=== PATIENT | female | born 1995 | race Caucasian/White ===

== ENCOUNTER 2017-03-03 17:22 | Emergency (ER) | payer OTHER ==
[~2017-03-03] VITALS: Wt 46.9 kg
[~2017-03-03 17:22] MED LIST: ADDERALL XR5 MG PO; ADDERALL7.5 MG PO; ATARAX25 MG PO; AVPAK AZITHROM250 M1 PO; BACTRIM DS 8001 TA1 PO; BROMFED DM COU118 M1 PO; Bactrim 200 MG/30 ML PO; CLARITIN5 MG/5 ML PO; CLEOCIN150 MG PO; DOXEPIN10 MG PO; FLEXERIL5 MG PO; HYDROCODONE BIT1 T11 PO; IBUPROFEN600 MG PO; LAMICTAL25 MG PO; MACROBID100 M1 PO; MEDROL DOSEPAK4 MG PO; MOTRIN400 MG PO; MOTRIN600 MG PO; MOTRIN800 MG PO; PERIDEX 480 ML480 ML PO; PRENATAL GUMMI1 EACH PO; PRENATAL1 TA1 PO; PRENATAL1 TA7 PO; Peridex 473 ML473 ML PO; ROBITUSSIN DM 105 ML PO; SEPTRA 200 MG/100 ML PO; TYLENOL325 M1 PO; VALIUM10 MG PO; ZITHROMAX Z PA250 MG PO; ZITHROMAX250 MG PO; ZOFRAN4 MG PO; ZYRTEC10 MG PO
[2017-03-03] MEDS ORDERED: DOXYCYCLINE100 MG PO (18:45)
[2017-03-03] MEDS ORDERED: CLARITIN-D 12 H1 TAB PO (18:45)
[2017-03-03] MEDS ORDERED: FLONASE ALLERG9.9 ML NAS (18:45)
== END 2017-03-03 18:53 | disposition home or self-care (01) ==
LOC: ED 17:22
DX: J01.90 Acute sinusitis, unspecified (principal); F17.200 Nicotine dependence, unspecified, uncomplicated; Z88.0 Allergy status to penicillin

== ENCOUNTER 2017-05-12 23:19 | Emergency (ER) | payer OTHER ==
[~2017-05-12] VITALS: Ht 139.7 cm; Wt 47.6 kg
[~2017-05-12 23:19] MED LIST changes: +CLARITIN-D 12 H1 TAB PO; +DOXYCYCLINE100 MG PO; +FLONASE ALLERG9.9 ML NAS
[2017-05-13] MEDS ORDERED: Motrin,Rufen800 MG PO (00:22)
== END 2017-05-13 00:48 | disposition home or self-care (01) ==
LOC: ED 23:19
DX: S96.912A Strain of unspecified muscle and tendon at ankle and foot level, left foot, initial encounter (principal); F17.200 Nicotine dependence, unspecified, uncomplicated; Z88.0 Allergy status to penicillin; W01.0XXA Fall on same level from slipping, tripping and stumbling without subsequent striking against object, initial encounter; Y93.01 Activity, walking, marching and hiking; Y92.89 Other specified places as the place of occurrence of the external cause; Y99.8 Other external cause status

== ENCOUNTER 2017-08-20 16:52 | Emergency (ER) | payer OTHER ==
[~2017-08-20] VITALS: Ht 152.4 cm; Wt 45.4 kg
[~2017-08-20 16:52] MED LIST changes: +Motrin,Rufen800 MG PO
[2017-08-20] MEDS ORDERED: CLARITIN10 MG PO (17:29)
[2017-08-20] MEDS ORDERED: PREDNISONE10 MG PO (17:29)
[2017-08-20] MEDS ORDERED: FLONASE ALLERG9.9 ML NAS (17:29)
[2017-08-20] MEDS ORDERED: ROBITUSSIN DM 105 ML PO (17:29)
== END 2017-08-20 18:38 | disposition home or self-care (01) ==
LOC: ED 16:52
DX: B34.9 Viral infection, unspecified (principal); F17.200 Nicotine dependence, unspecified, uncomplicated; Z88.0 Allergy status to penicillin

== ENCOUNTER 2017-11-01 17:07 | Emergency (ER) | payer OTHER ==
[~2017-11-01] VITALS: Ht 139.7 cm; Wt 48.1 kg
[~2017-11-01 17:07] MED LIST changes: +CLARITIN10 MG PO; +PREDNISONE10 MG PO
[2017-11-01] MEDS ORDERED: IBU800 M1 PO (18:17)
[2017-11-01] MEDS ORDERED: CLINDAMYCIN HC300 MG PO (18:17)
== END 2017-11-01 18:32 | disposition home or self-care (01) ==
LOC: ED 17:07
DX: K08.89 Other specified disorders of teeth and supporting structures (principal); F17.200 Nicotine dependence, unspecified, uncomplicated; Z79.899 Other long term (current) drug therapy; Z88.0 Allergy status to penicillin

== ENCOUNTER 2018-03-01 18:27 | Emergency (ER) | payer OTHER ==
[~2018-03-01] VITALS: Ht 139.7 cm; Wt 42.2 kg
[~2018-03-01 18:27] MED LIST changes: +CLINDAMYCIN HC300 MG PO; +IBU800 M1 PO
[2018-03-01] MEDS ORDERED: PREDNISONE10 MG PO (18:31)
== END 2018-03-01 18:50 | disposition home or self-care (01) ==
LOC: ED 18:27
DX: M77.9 Enthesopathy, unspecified (principal); F17.200 Nicotine dependence, unspecified, uncomplicated; Z88.0 Allergy status to penicillin; X58.XXXA Exposure to other specified factors, initial encounter; Y93.89 Activity, other specified; Y92.89 Other specified places as the place of occurrence of the external cause; Y99.8 Other external cause status

== ENCOUNTER 2018-03-11 17:33 | Emergency (ER) | payer OTHER ==
[~2018-03-11] VITALS: Ht 139.7 cm; Wt 42.2 kg
== END 2018-03-11 18:22 | disposition home or self-care (01) ==
LOC: ED 17:33
DX: M77.9 Enthesopathy, unspecified (principal); F17.200 Nicotine dependence, unspecified, uncomplicated; G89.29 Other chronic pain; Z88.0 Allergy status to penicillin

== ENCOUNTER → 2018-07-29 | Outpatient (CLI) | payer OTHER ==
[~2018-07-29] MED LIST changes: +BUSPIRONE HCL7.5 MG PO; +LATU40TA PO; +OMNICEF300 MG PO; +PREDNISONE20 M1 PO; +PROAIR HFA8.5 GM INH; +TRAZODONE50 MG PO; +VISTARIL25 MG PO
[2018-07-29 10:29] LABS: HEMATOCRIT 39.1 % (37.0-47.0); HEMOGLOBIN 13.2 g/dl (12.0-16.0); MEAN CELL VOLUME 89.1 fl (81.0-99.0); MEAN CORPUSCULAR HGB 30.1 pg (27.0-31.0); MEAN CORPUSCULAR HGB CONC 33.8 g/dl (33.0-37.0); MEAN PLATELET VOLUME 8.8 fl (9.6-12.3); RED BLOOD COUNT 4.39 10*6/uL (4.10-5.10); RED CELL DISTRI WIDTH 12.6 % (0-14.5); WHITE BLOOD COUNT 11.7 10*3/uL (4.8-10.8)
[2018-07-29 10:52] LABS: ALBUMIN 3.9 gm/dl (3.1-4.5); ALKALINE PHOSPHATASE 84 U/L (45-117); BUN 13 mg/dl (7-24); CHLORIDE 104 mmol/L (98-107); CREATININE 0.81 mg/dL (0.55-1.02); SGOT/AST 15 IU/L (3-35); SGPT/ALT 18 U/L (12-78); SODIUM 139 mmol/L (136-145); TOTAL PROTEIN 7.7 gm/dL (6.4-8.2)
== END | disposition home or self-care (01) ==
LOC: LAB 09:59
PROVIDERS: Registered Nurse Flight
DX: Z00.00 Encounter for general adult medical examination without abnormal findings (principal)

== ENCOUNTER 2019-05-28 11:26 | Emergency (ER) | payer OTHER ==
[~2019-05-28] VITALS: Ht 139.7 cm; Wt 38.1 kg
== END 2019-05-28 12:20 | disposition home or self-care (01) ==
LOC: ED 11:26
DX: Z32.02 Encounter for pregnancy test, result negative (principal); Z88.0 Allergy status to penicillin; Z79.899 Other long term (current) drug therapy

== ENCOUNTER 2019-09-15 18:15 | Emergency (ER) | payer OTHER ==
[~2019-09-15] VITALS: Ht 139.7 cm; Wt 44.0 kg
[2019-09-15 18:57] LABS: BASO # 0.1 10*3/uL (0.0-0.1); BASO % 0.4 % (0.0-1.0); EOS # 0.3 10*3/uL (0.0-0.4); HEMATOCRIT 42.3 % (37.0-47.0); HEMOGLOBIN 14.7 g/dl (12.0-16.0); LYMPH # 4.6 10*3/uL (1.3-4.4); LYMPH % 29.2 % (27.0-41.0); MEAN CELL VOLUME 88.7 fl (81.0-99.0); MEAN CORPUSCULAR HGB 30.8 pg (27.0-31.0); MEAN CORPUSCULAR HGB CONC 34.8 g/dl (33.0-37.0); MEAN PLATELET VOLUME 8.2 fl (9.6-12.3); NEUT # 9.8 10*3/uL (2.3-7.9); PLATELET COUNT AUTOMATED 531 10*3/uL (130-400); RED BLOOD COUNT 4.77 10*6/uL (4.10-5.10); WHITE BLOOD COUNT 15.8 10*3/uL (4.8-10.8)
[2019-09-15 19:15] LABS: ALBUMIN 4.1 gm/dl (3.1-4.5); ALKALINE PHOSPHATASE 102 U/L (45-117); BUN 8 mg/dl (7-24); CHLORIDE 106 mmol/L (98-107); CREATININE 0.75 mg/dL (0.55-1.02); POTASSIUM 3.7 mmol/L (3.5-5.1); SGOT/AST 16 IU/L (3-35); SGPT/ALT 23 U/L (12-78); SODIUM 138 mmol/L (136-145); TOTAL PROTEIN 8.8 gm/dL (6.4-8.2)
[2019-09-15 19:28] LABS: BILIRUBIN NEGATIVE (NEGATIVE); BLOOD NEGATIVE (NEGATIVE); CLARITY CLOUDY (CLEAR); COLOR YELLOW (YELLOW); GLUCOSE NEGATIVE (NEGATIVE); KETONE NEGATIVE (NEGATIVE); LEUKO ESTERASE NEGATIVE (NEGATIVE); NITRITE NEGATIVE (NEGATIVE); SPECIFIC GRAVITY 1.015 (1.005-1.030); UROBILINOGEN 0.2 E.U./dl (0.2-1.0)
[2019-09-15 19:39] LABS: BACTERIA 2+; EPITHELIAL CELLS 20-30
[2019-09-15] MEDS ORDERED: SEPTDS PO (20:09)
== END 2019-09-15 20:22 | disposition home or self-care (01) ==
LOC: ED 18:15
PROVIDERS: Nurse Practitioner Family
DX: J32.9 Chronic sinusitis, unspecified (principal); Z88.0 Allergy status to penicillin; Z79.899 Other long term (current) drug therapy

== ENCOUNTER 2020-03-31 21:22 | Emergency (ER) | payer OTHER ==
[~2020-03-31] VITALS: Ht 139.7 cm; Wt 43.5 kg
[~2020-03-31 21:22] MED LIST changes: +SEPTDS PO
== END 2020-04-01 01:00 | disposition home or self-care (01) ==
LOC: ED 21:22
DX: S93.402A Sprain of unspecified ligament of left ankle, initial encounter (principal); X58.XXXA Exposure to other specified factors, initial encounter; Y93.89 Activity, other specified; Y92.89 Other specified places as the place of occurrence of the external cause; Y99.8 Other external cause status

== ENCOUNTER → 2021-01-01 | Outpatient (CLI) | payer OTHER | END | disposition home or self-care (01) | LOC: LAB 16:23 | PROVIDERS: ATTEND Nurse Practitioner Women's Health | DX: N91.2 Amenorrhea, unspecified (principal) ==

== ENCOUNTER 2021-04-21 19:23 | Emergency (ER) | payer OTHER ==
[~2021-04-21] VITALS: Ht 139.7 cm; Wt 43.5 kg
== END 2021-04-21 21:47 | disposition left against medical advice (07) ==
LOC: ED 19:23
DX: S60.812A Abrasion of left wrist, initial encounter (principal); S50.312A Abrasion of left elbow, initial encounter; M54.5 Low back pain; F17.200 Nicotine dependence, unspecified, uncomplicated; Z88.0 Allergy status to penicillin; Y04.2XXA Assault by strike against or bumped into by another person, initial encounter; Y93.89 Activity, other specified; Y92.89 Other specified places as the place of occurrence of the external cause; Y99.8 Other external cause status

== ENCOUNTER 2021-06-03 20:28 | Emergency (ER) | payer OTHER ==
[~2021-06-03] VITALS: Ht 152.4 cm; Wt 40.4 kg
[2021-07-03] MEDS ORDERED: MACROBID100 M1 PO (17:19)
[2021-07-03] MEDS ORDERED: FLAGYL500 MG PO (17:19)
== END 2021-06-03 21:13 | disposition home or self-care (01) ==
LOC: ED 20:28
DX: Z32.01 Encounter for pregnancy test, result positive (principal); Z88.0 Allergy status to penicillin

== ENCOUNTER 2021-06-30 14:15 | Emergency (ER) | payer OTHER ==
[~2021-06-30] VITALS: Ht 139.7 cm; Wt 41.3 kg
[2021-06-30 14:58] LABS: BASO # 0.1 10*3/uL (0.0-0.1); BASO % 0.6 % (0.0-1.0); EOS # 0.5 10*3/uL (0.0-0.4); EOS % 4.1 % (1.0-4.0); LYMPH # 3.6 10*3/uL (1.3-4.4); LYMPH % 32.3 % (27.0-41.0); MEAN CORPUSCULAR HGB 30.6 pg (27.0-31.0); MEAN PLATELET VOLUME 8.2 fl (9.6-12.3); MONO # 0.7 10*3/uL (0.1-1.0); MONO % 6.6 % (3.0-9.0); NEUT # 6.2 10*3/uL (2.3-7.9); NEUT % 56.2 % (47.0-73.0); PLATELET COUNT AUTOMATED 416 10*3/uL (130-400); RED BLOOD COUNT 3.89 10*6/uL (4.10-5.10); RED CELL DISTRI WIDTH 12.1 % (0-14.5); WHITE BLOOD COUNT 11.1 10*3/uL (4.8-10.8)
[2021-06-30 15:16] LABS: ALBUMIN 3.6 gm/dl (3.1-4.5); ALKALINE PHOSPHATASE 78 U/L (45-117); BUN 7 mg/dl (7-24); CHLORIDE 107 mmol/L (98-107); CREATININE 0.56 mg/dL (0.55-1.02); POTASSIUM 3.8 mmol/L (3.5-5.1); SGOT/AST 10 IU/L (3-35); SGPT/ALT 17 U/L (12-78); SODIUM 138 mmol/L (136-145); TOTAL PROTEIN 7.4 gm/dL (6.4-8.2)
[2021-06-30 15:38] LABS: BILIRUBIN Negative (Negative); BLOOD 3+ (Negative); CLARITY Cloudy (Clear); COLOR Yellow (Yellow); GLUCOSE Negative (Negative); KETONE Negative (Negative); LEUKO ESTERASE 1+ (Negative); NITRITE Negative (Negative); UROBILINOGEN 0.2 E.U./dl (0.0-1.0)
[2021-06-30 15:45] LABS: BACTERIA 1+; EPITHELIAL CELLS 16-20
[2021-06-30] MEDS ORDERED: FLAGYL500 MG PO (16:00)
[2021-06-30] MEDS ORDERED: MACROBID100 M1 PO (16:00)
[2021-07-03] MEDS ORDERED: MACROBID100 M1 PO (17:19)
[2021-07-03] MEDS ORDERED: FLAGYL500 MG PO (17:19)
== END 2021-06-30 18:32 | disposition home or self-care (01) ==
LOC: ED 14:15
PROVIDERS: Physician Assistant
DX: O23.591 Infection of other part of genital tract in pregnancy, first trimester (principal); A59.01 Trichomonal vulvovaginitis; Z3A.01 Less than 8 weeks gestation of pregnancy; Z88.0 Allergy status to penicillin

== ENCOUNTER 2021-07-02 20:32 | Emergency (ER) | payer OTHER ==
[~2021-07-02] VITALS: Ht 139.7 cm; Wt 44.0 kg
[~2021-07-02 20:32] MED LIST changes: +FLAGYL500 MG PO
[2021-07-03] MEDS ORDERED: FLAGYL500 MG PO (17:19)
[2021-07-03] MEDS ORDERED: MACROBID100 M1 PO (17:19)
== END 2021-07-02 23:52 | disposition home or self-care (01) ==
LOC: ED 20:32
DX: O20.0 Threatened abortion (principal); Z3A.00 Weeks of gestation of pregnancy not specified; Z88.0 Allergy status to penicillin

== ENCOUNTER → 2021-07-04 | Outpatient (CLI) | payer OTHER | END | disposition home or self-care (01) | LOC: LAB 16:24 | PROVIDERS: ATTEND Physician Assistant | DX: O20.0 Threatened abortion (principal) ==

== ENCOUNTER 2021-12-18 19:18 | Emergency (ER) | payer OTHER ==
[~2021-12-18] VITALS: Ht 139.7 cm; Wt 41.7 kg
[2021-12-18 21:24] LABS: HEMATOCRIT 33.7 % (37.0-47.0); MEAN CELL VOLUME 90.8 fl (81.0-99.0); MEAN CORPUSCULAR HGB 31.3 pg (27.0-31.0); MEAN CORPUSCULAR HGB CONC 34.4 g/dl (33.0-37.0); MEAN PLATELET VOLUME 8.4 fl (9.6-12.3); PLATELET COUNT AUTOMATED 384 10*3/uL (130-400); RED BLOOD COUNT 3.71 10*6/uL (4.10-5.10); RED CELL DISTRI WIDTH 12.4 % (0-14.5); WHITE BLOOD COUNT 18.2 10*3/uL (4.8-10.8)
[2021-12-18 21:33] LABS: MANUAL DIFF REFLEX YES
[2021-12-18 21:39] LABS: BILIRUBIN Negative (Negative); BLOOD Negative (Negative); CLARITY Turbid (Clear); COLOR Yellow (Yellow); GLUCOSE Negative (Negative); KETONE Trace (Negative); LEUKO ESTERASE Trace (Negative); NITRITE Negative (Negative); SPECIFIC GRAVITY 1.025 (1.001-1.030); UROBILINOGEN 0.2 E.U./dl (0.0-1.0)
[2021-12-18 21:41] LABS: ALKALINE PHOSPHATASE 58 U/L (45-117); BUN 10 mg/dl (7-24); CHLORIDE 109 mmol/L (98-107); CREATININE 0.41 mg/dL (0.55-1.02); LIPASE 156 U/L (73-393); POTASSIUM 3.7 mmol/L (3.5-5.1); SGOT/AST 8 IU/L (3-35); SGPT/ALT 13 U/L (12-78); SODIUM 137 mmol/L (136-145); TOTAL PROTEIN 6.8 gm/dL (6.4-8.2)
[2021-12-18 21:48] LABS: BACTERIA 4+
[2021-12-18 21:49] LABS: WBC TNTC wbc/hpf (0-5)
[2021-12-18 21:57] LABS: TOTAL CELLS COUNTED 100 #CELLS
[2021-12-18 21:58] LABS: PLATELET SUFFICIENCY NORMAL (NORMAL)
[2021-12-18] MEDS ORDERED: MACROBID100 M1 PO (22:55)
== END 2021-12-19 00:44 | disposition home or self-care (01) ==
LOC: ED 19:18
PROVIDERS: Physician Assistant
DX: O23.91 Unspecified genitourinary tract infection in pregnancy, first trimester (principal); Z3A.08 8 weeks gestation of pregnancy; Z88.0 Allergy status to penicillin

== ENCOUNTER 2022-03-07 20:24 | Emergency (ER) | payer OTHER ==
[2022-03-07] MEDS ORDERED: ASPIRIN81 M1 PO (20:39)
[2022-03-07 21:11] LABS: BASO # 0.1 10*3/uL (0.0-0.1); BASO % 0.4 % (0.0-1.0); EOS # 0.2 10*3/uL (0.0-0.4); EOS % 1.1 % (1.0-4.0); HEMATOCRIT 30.5 % (37.0-47.0); LYMPH # 3.7 10*3/uL (1.3-4.4); LYMPH % 19.2 % (27.0-41.0); MEAN CELL VOLUME 89.2 fl (81.0-99.0); MEAN CORPUSCULAR HGB 31.3 pg (27.0-31.0); MEAN CORPUSCULAR HGB CONC 35.1 g/dl (33.0-37.0); MEAN PLATELET VOLUME 8.6 fl (9.6-12.3); MONO # 1.1 10*3/uL (0.1-1.0); MONO % 5.7 % (3.0-9.0); NEUT # 14.1 10*3/uL (2.3-7.9); PLATELET COUNT AUTOMATED 441 10*3/uL (130-400); RED BLOOD COUNT 3.42 10*6/uL (4.10-5.10); RED CELL DISTRI WIDTH 12.7 % (0-14.5); WHITE BLOOD COUNT 19.2 10*3/uL (4.8-10.8)
[2022-03-07 21:39] LABS: ALKALINE PHOSPHATASE 80 U/L (45-117); BUN 10 mg/dl (7-24); CHLORIDE 107 mmol/L (98-107); CREATININE 0.45 mg/dL (0.55-1.02); POTASSIUM 3.4 mmol/L (3.5-5.1); SGOT/AST 12 IU/L (3-35); SGPT/ALT 11 U/L (12-78); SODIUM 137 mmol/L (136-145); TOTAL PROTEIN 7.5 gm/dL (6.4-8.2)
[2022-03-07 23:03] LABS: BILIRUBIN 1+ (Negative); BLOOD Negative (Negative); CLARITY Cloudy (Clear); COLOR Dark Yellow (Yellow); GLUCOSE Negative (Negative); KETONE 4+ (Negative); LEUKO ESTERASE 1+ (Negative); NITRITE Negative (Negative); PH 6.5 (4.5-8.0); SPECIFIC GRAVITY >= 1.030 (1.001-1.030)
[2022-03-08 00:04] LABS: BACTERIA 3+
== END 2022-03-08 00:13 | disposition home or self-care (01) ==
LOC: ED 20:24
PROVIDERS: Nurse Practitioner Family
DX: O23.92 Unspecified genitourinary tract infection in pregnancy, second trimester (principal); Z88.0 Allergy status to penicillin; F17.200 Nicotine dependence, unspecified, uncomplicated; Z3A.21 21 weeks gestation of pregnancy

== ENCOUNTER 2022-03-29 19:13 | Emergency (ER) | payer OTHER ==
[~2022-03-29] VITALS: Ht 139.7 cm; Wt 45.4 kg
[~2022-03-29 19:13] MED LIST changes: +ASPIRIN81 M1 PO
[2022-03-29] MEDS ORDERED: ZOFRAN4 MG PO (21:15)
== END 2022-03-29 21:29 | disposition home or self-care (01) ==
LOC: ED 19:13
DX: O26.892 Other specified pregnancy related conditions, second trimester (principal); Z3A.24 24 weeks gestation of pregnancy; F17.200 Nicotine dependence, unspecified, uncomplicated; Z88.0 Allergy status to penicillin; Z88.6 Allergy status to analgesic agent

== ENCOUNTER → 2022-05-08 | Outpatient (CLI) | payer OTHER ==
[2022-05-08 15:02] LABS: BASO % 0.3 % (0.0-1.0); EOS # 0.3 10*3/uL (0.0-0.4); EOS % 1.6 % (1.0-4.0); HEMATOCRIT 31.3 % (37.0-47.0); LYMPH % 25.6 % (27.0-41.0); MEAN CELL VOLUME 91.5 fl (81.0-99.0); MEAN CORPUSCULAR HGB 30.7 pg (27.0-31.0); MEAN CORPUSCULAR HGB CONC 33.5 g/dl (33.0-37.0); MEAN PLATELET VOLUME 8.4 fl (9.6-12.3); MONO % 6.3 % (3.0-9.0); NEUT # 10.1 10*3/uL (2.3-7.9); NEUT % 65.6 % (47.0-73.0); PLATELET COUNT AUTOMATED 444 10*3/uL (130-400); RED BLOOD COUNT 3.42 10*6/uL (4.10-5.10); RED CELL DISTRI WIDTH 13.2 % (0-14.5); WHITE BLOOD COUNT 15.4 10*3/uL (4.8-10.8)
== END | disposition home or self-care (01) ==
LOC: LAB 14:33
PROVIDERS: ATTEND Obstetrics & Gynecology
DX: Z34.03 Encounter for supervision of normal first pregnancy, third trimester (principal); Z3A.30 30 weeks gestation of pregnancy

== ENCOUNTER → 2022-05-10 | Outpatient (CLI) | payer OTHER | END | disposition home or self-care (01) | LOC: LAB 05-09 01:13 | PROVIDERS: ATTEND Obstetrics & Gynecology | DX: Z34.93 Encounter for supervision of normal pregnancy, unspecified, third trimester (principal); Z3A.30 30 weeks gestation of pregnancy ==

== ENCOUNTER → 2022-05-27 | Outpatient (CLI) | payer OTHER | END | disposition home or self-care (01) | LOC: LAB 05-24 09:05 | PROVIDERS: ATTEND Obstetrics & Gynecology | DX: Z34.93 Encounter for supervision of normal pregnancy, unspecified, third trimester (principal); Z3A.30 30 weeks gestation of pregnancy ==

== ENCOUNTER → 2022-07-16 | Outpatient (CLI) | payer OTHER ==
[2022-07-16 17:14] LABS: HEMATOCRIT 37.6 % (37.0-47.0); MEAN CELL VOLUME 87.9 fl (81.0-99.0); MEAN CORPUSCULAR HGB 29.9 pg (27.0-31.0); MEAN PLATELET VOLUME 8.6 fl (9.6-12.3); PLATELET COUNT AUTOMATED 442 10*3/uL (130-400); RED BLOOD COUNT 4.28 10*6/uL (4.10-5.10); RED CELL DISTRI WIDTH 12.8 % (0-14.5); RETICULOCYTE % 1.37 % (0.50-2.50); WHITE BLOOD COUNT 12.8 10*3/uL (4.8-10.8)
[2022-07-16 17:49] LABS: FERRITIN 61.2 ng/mL (10.0-291.0)
[2022-07-16 17:58] LABS: ALKALINE PHOSPHATASE 94 U/L (45-117); BUN 6 mg/dl (7-24); CHLORIDE 109 mmol/L (98-107); CREATININE 0.84 mg/dL (0.55-1.02); IRON 38 ug/dL (50-170); LDH 144 U/L (84-246); POTASSIUM 3.2 mmol/L (3.5-5.1); SGOT/AST 10 IU/L (3-35); SGPT/ALT 24 U/L (12-78); SODIUM 141 mmol/L (136-145); TOTAL PROTEIN 7.4 gm/dL (6.4-8.2)
[2022-07-16 19:32] LABS: TOTAL CELLS COUNTED 100 #CELLS
[2022-07-16 19:33] LABS: BURR CELLS FEW; PLATELET SUFFICIENCY HIGH (NORMAL)
[2022-07-17 06:07] LABS: HBSAG Negative (Negative); HEP B CORE AB, IGM Negative (Negative); HEPATITIS C ANTIBODY <0.1 (0.0-0.9)
== END | disposition home or self-care (01) ==
LOC: LAB 16:12
PROVIDERS: ATTEND Internal Medicine Medical Oncology
DX: D50.9 Iron deficiency anemia, unspecified (principal)

== ENCOUNTER → 2022-07-17 | Outpatient (CLI) | payer OTHER ==
[2022-07-21 19:06] LABS: CML FISH Comment: (.); DIRECTOR REVIEW Comment: (.)
== END | disposition home or self-care (01) ==
LOC: LAB 13:54
PROVIDERS: ATTEND Internal Medicine Medical Oncology
DX: D50.9 Iron deficiency anemia, unspecified (principal)

== ENCOUNTER 2022-11-20 17:12 | Emergency (ER) | payer OTHER ==
[~2022-11-20] VITALS: Ht 139.7 cm; Wt 47.6 kg
== END 2022-11-20 19:52 | disposition home or self-care (01) ==
LOC: ED 17:12
DX: M77.8 Other enthesopathies, not elsewhere classified (principal); Z88.0 Allergy status to penicillin; Z79.82 Long term (current) use of aspirin

== ENCOUNTER → 2022-12-31 | Outpatient (CLI) | payer OTHER | END | disposition home or self-care (01) | LOC: MRI 00:33 | PROVIDERS: ATTEND Family Medicine | DX: S43.91XD Sprain of unspecified parts of right shoulder girdle, subsequent encounter (principal); S63.501D Unspecified sprain of right wrist, subsequent encounter; M65.4 Radial styloid tenosynovitis [de Quervain]; M19.041 Primary osteoarthritis, right hand; M19.031 Primary osteoarthritis, right wrist; X58.XXXD Exposure to other specified factors, subsequent encounter ==

== ENCOUNTER → 2023-07-16 | Day surgery (SDC) | payer OTHER ==
[2023-07-15 11:46] LABS: BUN 8 mg/dl (9-23); CHLORIDE 110 mmol/L (98-107)
[~2023-07-16] VITALS: Ht 139.7 cm; Wt 56.7 kg
[2023-07-16 07:45] VITALS: BP 104/67
[2023-07-16 09:41] VITALS: BP 98/67
[2023-07-16 09:56] VITALS: BP 104/61
[2023-07-16 10:13] VITALS: BP 110/71
== END ==
LOC: SDC 07-13 08:00
PROVIDERS: ATTEND Orthopaedic Surgery
DX: G56.01 Carpal tunnel syndrome, right upper limb (principal); M65.4 Radial styloid tenosynovitis [de Quervain]; F32.A Depression, unspecified; F17.210 Nicotine dependence, cigarettes, uncomplicated; Z98.891 History of uterine scar from previous surgery; Z88.0 Allergy status to penicillin; Z91.048 Other nonmedicinal substance allergy status

== ENCOUNTER → 2025-09-28 | Outpatient (CLI) | payer OTHER ==
[2025-09-28 09:42] LABS: MEAN CELL VOLUME 88.3 fl (81.0-99.0); MEAN CORPUSCULAR HGB 31.0 pg (27.0-31.0); MEAN PLATELET VOLUME 8.1 fl (9.6-12.3); NUCLEATED RED BLOOD CELL 0.0 % (0.0-0.0); NUCLEATED RED BLOOD CELL 0.0 10*3/uL (0.0-0.0); PLATELET COUNT AUTOMATED 461 10*3/uL (130-400); RED CELL DISTRI WIDTH 13.2 % (0-14.5); RETICULOCYTE % 1.89 % (0.50-2.50)
[2025-09-28 09:52] LABS: BILIRUBIN Negative (Negative); BLOOD Negative (Negative); CLARITY Turbid (Clear); COLOR Dark Yellow (Yellow); KETONE Negative (Negative); LEUKO ESTERASE 1+ (Negative); NITRITE Negative (Negative); PH 8.0 (4.5-8.0); SPECIFIC GRAVITY >= 1.030 (1.001-1.030); UROBILINOGEN 1.0 E.U./dl (0.0-1.0)
[2025-09-28 10:00] LABS: MANUAL DIFF REFLEX YES
[2025-09-28 10:09] LABS: BACTERIA 4+; EPITHELIAL CELLS 16-20
[2025-09-28 10:17] LABS: BUN 9 mg/dl (9-23); GAMMA GLUTAMYL TRANSFERASE 53 U/L (0-38); LDL CHOLESTEROL 115 mg/dL (9-159); SGPT/ALT 28 U/L (5-49); T3 UPTAKE 32.9 % (22.4-36.7); THYROXINE (T4) TOTAL 8.2 ug/dl (4.5-10.9)
[2025-09-28 10:21] LABS: PLATELET SUFFICIENCY HIGH (NORMAL)
[2025-09-28 10:33] LABS: VITAMIN D, 25-HYDROXY 20.5 ng/mL (30-100)
[2025-09-29 12:07] LABS: ANTI-DSDNA ANTIBODIES 2 IU/mL (0-9)
== END | disposition home or self-care (01) ==
LOC: LAB 09:21
PROVIDERS: ATTEND Family Medicine
DX: R79.89 Other specified abnormal findings of blood chemistry (principal); E78.5 Hyperlipidemia, unspecified; E55.9 Vitamin D deficiency, unspecified; R53.83 Other fatigue

== ENCOUNTER → 2025-10-10 | Outpatient (CLI) | payer OTHER ==
[~2025-10-10] MED LIST changes: +GADOTERATE MEGLUMINE 7.5 MMOL/15 ML VIAL IV ONE
== END | disposition home or self-care (01) ==
LOC: MRI 08:48
PROVIDERS: ATTEND Family Medicine
DX: J34.89 Other specified disorders of nose and nasal sinuses (principal); G43.909 Migraine, unspecified, not intractable, without status migrainosus